=== PATIENT | male | born 1950 | race Caucasian/White ===

== ENCOUNTER 2017-07-08 07:42 | Inpatient (IN) ==
[2017-07-08] MEDS ORDERED: CEFUROXIME INJ 1,500 MG in SODIUM CHLORIDE 0.9% 100 ML IV ONE (09:37)
[2017-07-08 10:18] LABS: Basophils % 0.4 % (0.0-0.8); Eosinophils # 0.1 10*3/uL (0.0-0.87); Eosinophils % 0.9 % (0.00-10.9); Hematocrit 39.7 VOL% (42.0-52.0); Hemoglobin 14.2 GM/DL (14.0-18.0); Immature Granulocytes % 0.4 %; Immature Granulocytes Absolute 0.02 #; Lymphocytes # 1.9 10*3/uL (1.4-4.0); Lymphocytes % 35.9 % (21.2-54.2); Mean Corpuscular HGB Conc 35.8 GM/DL (32-36); Mean Corpuscular Hemoglobin 33 PG (27-34); Mean Corpuscular Volume 93.2 FL (87-102); Mean Platelet Volume 9.5 FL (9.6-12.0); Monocytes # 0.4 10*3/uL (0.11-0.8); Monocytes % 7.7 % (1.7-12.7); Neutrophils # 2.9 10*3/uL (1.4-7.4); Neutrophils % 54.7 % (38.7-73.9); Platelet Count 190 T/CUMM (130-400); Red Blood Count 4.26 MC/CUMM (3.8-5.5); Red Cell Distribution Width 12.6 % (9.3-17.3); White Blood Count 5.4 T/CUMM (4-12)
[2017-07-08 10:35] LABS: Albumin 3.7 G/DL (3.4-5.0); Bilirubin,Total 0.8 MG/DL (0.2-1.0); Calcium 8.9 MG/DL (8.5-10.1); Osmolality,Calculated 279.4 MOS/KG (273-304); Potassium 4.2 MMOL/L (3.5-5.1); Total Protein 6.9 G/DL (6.4-8.3)
[2017-07-08] MEDS ORDERED: ALBUTEROL/IPRATROPIUM 3 ML NEB RESP TX PRN (11:19)
[2017-07-08] MEDS ORDERED: GLUCAGON 1 MG VIAL IM PRN (11:20)
[2017-07-08] MEDS ORDERED: DEXTROSE 50% 25 GM/50 ML VIAL IV PRN (11:20)
[2017-07-08] MEDS ORDERED: ZALEPLON 5 MG CAPSULE PO PRN (11:21)
[2017-07-08 11:58] LABS: ABG HCO3 26.1 MMOL/L (20-26); ABG Oxygen Saturation 96.1 % (95-100); ABG PCO2 42.1 MM HG (35-48); ABG PH 7.412 (7.35-7.45); ABG PO2 77.6 MM HG (80-95); ABG TCO2 23.1 MMOL/L (23-27); Allen Test Positive; Pt O2 Delivery Device Room Air
[2017-07-08] MEDS: SODIUM CHLORIDE 0.9% 1,000 ML IV SCH (13:07)
[2017-07-08] MEDS: CHLORHEXIDINE 4% SOLN 118 ML BOTTLE TOP SCH ×2 (15:33→22:24)
[2017-07-08] MEDS: CARVEDILOL 3.125 MG TABLET PO SCH (22:23)
[2017-07-08] MEDS: CHLORHEXIDINE 0.12% ORAL RINSE 60 ML BOTTLE SWISH/SPIT SCH (22:26)
[2017-07-09] MEDS ORDERED: CEFUROXIME INJ 1,500 MG in SYRINGE 1 EACH IV ONE (04:00)
[2017-07-09] MEDS ORDERED: PAPAVERINE 60 MG/2 ML VIAL ONE (04:54)
[2017-07-09] MEDS ORDERED: VANCOMYCIN 1,000 MG VIAL ONE (04:54)
[2017-07-09] MEDS ORDERED: amLODIPine 10 MG TABLET PO SCH (05:30)
[2017-07-09] MEDS ORDERED: DIAZEPAM 5 MG TABLET PO ONE (05:30)
[2017-07-09] MEDS ORDERED: LOSARTAN 50 MG TABLET PO SCH (05:30)
[2017-07-09] MEDS ORDERED: FAMOTIDINE 20 MG TABLET PO ONE (05:30)
[2017-07-09] MEDS: CARVEDILOL 3.125 MG TABLET PO SCH ×2 (05:36→09:04)
[2017-07-09] MEDS ORDERED: TRANEXAMIC ACID 1,000 MG/10 ML VIAL IV ONE (05:43)
[2017-07-09] MEDS ORDERED: ALBUTEROL/IPRATROPIUM 3 ML NEB RESP TX ONE (06:00)
[2017-07-09] MEDS ORDERED: PHENYLEPHRINE DRIP 40 MG/250 ML PREMIX IV ONE (07:51)
[2017-07-09] MEDS ORDERED: NITROPRUSSIDE 50 MG/2 ML VIAL ONE (07:51)
[2017-07-09] MEDS ORDERED: CALCIUM CHLORIDE 1,000 MG/10 ML SYRINGE IV ONE (07:52)
[2017-07-09] MEDS ORDERED: POTASSIUM CHLORIDE RIDER 100 ML IV ONE (07:52)
[2017-07-09 07:54] LABS: ABG Base Excess -1.1 MMOL/L (-2.5-2.5); ABG HCO3 23.6 MMOL/L (20-26); ABG PCO2 38.5 MM HG (35-48); ABG PH 7.395 (7.35-7.45); ABG TCO2 20.6 MMOL/L (23-27); Glucose Heart Surgery 110 MG/DL (74-106); Hematocrit Heart Surgery 39.9 PERCENT (42-52); Ionized Calcium Arterial 1.19 MMOL/L (1.21-1.46); PCO2 Patient Temp Arterial 38.5 MMHG; PH Patient Temp Arterial 7.395; Patient Temperature 37 CELCIUS; Potassium Heart/CVR 4.1 MMOL/L (3.5-5.1); Sodium Heart/CVR 140 MMOL/L (135-145)
[2017-07-09 08:45] LABS: Apearance,Urine CLEAR (Clear); Bilirubin,Urine Negative (Negative); Blood, Urine Moderate mg/dL (Negative); Glucose,Urine (UA) Negative (Negative); Ketones,Urine Negative (Negative); Mucus,Urine Occasional /LPF (Occasional); Nitrite,Urine Negative (Negative); Protein,Urine Negative; RBC,Urine 1 /HPF (0-4); Squamous Epithelial Cell,Urine Occasional /HPF (0-10); Urine Color Yellow (Yellow); Urine Specific Gravity 1.008 (1.001-1.035); Urine Urobilinogen < 2.0 EU/DL (0.2-1.0); WBC,Urine 1 /HPF (0-6)
[2017-07-09] MEDS ORDERED: ATORVASTATIN 20 MG TABLET PO SCH (09:00)
[2017-07-09] MEDS ORDERED: ASPIRIN EC 81 MG TABLET PO SCH (09:00)
[2017-07-09] MEDS: CHLORHEXIDINE 4% SOLN 118 ML BOTTLE TOP SCH (09:05)
[2017-07-09] MEDS: CHLORHEXIDINE 0.12% ORAL RINSE 60 ML BOTTLE SWISH/SPIT SCH ×2 (09:05→20:18)
[2017-07-09 09:36] LABS: Hematocrit Heart Surgery 28.4 PERCENT (42-52); Hemoglobin Heart Surgery 9.2 G/DL (14.0-18.0); PCO2 Patient Temp Venous 34.8 MM HG; PH Patient Temp Venous 7.451; PO2 Patient Temp Venous 35.6 MM HG; Potassium Heart/CVR 4.7 MMOL/L (3.5-5.1); VBG Base Excess 0.7 MEQ/L (0-4); VBG HCO3 24.7 MEQ/L (24-28); VBG Oxygen Saturation 80.2 %; VBG PCO2 40.2 MMHG (41-51); VBG PH 7.407; VBG PO2 43.8 MMHG (17-40)
[2017-07-09 10:02] LABS: Hematocrit Heart Surgery 30.3 PERCENT (42-52); Hemoglobin Heart Surgery 9.8 G/DL (14.0-18.0); PCO2 Patient Temp Venous 32.9 MM HG; PH Patient Temp Venous 7.473; PO2 Patient Temp Venous 36.2 MM HG; Potassium Heart/CVR 4.7 MMOL/L (3.5-5.1); VBG Base Excess 0.9 MEQ/L (0-4); VBG PH 7.429; VBG PO2 44.5 MMHG (17-40)
[2017-07-09 10:40] LABS: Hematocrit Heart Surgery 29.3 PERCENT (42-52); Hemoglobin Heart Surgery 9.4 G/DL (14.0-18.0); PCO2 Patient Temp Venous 37.2 MM HG; PH Patient Temp Venous 7.415; PO2 Patient Temp Venous 40.9 MM HG; Potassium Heart/CVR 4.4 MMOL/L (3.5-5.1); VBG Base Excess -0.5 MEQ/L (0-4); VBG HCO3 23.7 MEQ/L (24-28); VBG PCO2 37.2 MMHG (41-51); VBG PH 7.415; VBG PO2 40.9 MMHG (17-40)
[2017-07-09 11:04] LABS: ABG Base Excess -2.5 MMOL/L (-2.5-2.5); ABG HCO3 22.3 MMOL/L (20-26); ABG Oxygen Saturation 99.4 % (95-100); ABG PCO2 39.2 MM HG (35-48); ABG PH 7.367 (7.35-7.45); ABG TCO2 20.4 MMOL/L (23-27); Glucose Heart Surgery 210 MG/DL (74-106); Hematocrit Heart Surgery 32.1 PERCENT (42-52); Hemoglobin Heart Surgery 10.4 G/DL (14.0-18.0); Ionized Calcium Arterial 1.18 MMOL/L (1.21-1.46); PCO2 Patient Temp Arterial 39.2 MMHG; PH Patient Temp Arterial 7.367; Patient Temperature 37 CELCIUS; Potassium Heart/CVR 3.8 MMOL/L (3.5-5.1); Sodium Heart/CVR 135 MMOL/L (135-145)
[2017-07-09] MEDS ORDERED: THROMBIN TOPICAL (RECOMBINANT) 5,000 UNIT VIAL TOP ONE (11:05)
[2017-07-09] MEDS ORDERED: ALBUMIN 25% 25 GM/100 ML VIAL IV ONE (11:13)
[2017-07-09] MEDS ORDERED: FUROSEMIDE 20 MG/2 ML VIAL ONE (11:14)
[2017-07-09] MEDS ORDERED: MANNITOL 12.5 GM/50 ML VIAL IV ONE ×2 (11:14→11:16)
[2017-07-09] MEDS ORDERED: HEPARIN 10,000 UNIT/10 ML VIAL ONE (11:14)
[2017-07-09 11:15] LABS: HIV Antigen/Antibody Result Nonreactive (Nonreactive); Hepatitis B Surface Ag Quant < 0.10 Index; Hepatitis B Surface Ag Result Negative (Negative); Hepatitis C Virus Ab Quant 0.08 Index; Hepatitis C Virus Ab Result Negative (Negative)
[2017-07-09] MEDS ORDERED: methylPREDNISolone SOD SUC 1,000 MG/8 ML VIAL ONE (11:16)
[2017-07-09] MEDS ORDERED: MAGNESIUM SULFATE 1 GM/2 ML VIAL ONE (11:16)
[2017-07-09] MEDS ORDERED: PROTAMINE SULFATE 250 MG/25 ML VIAL IV ONE (11:16)
[2017-07-09] MEDS ORDERED: PHENYLEPHRINE 10 MG/1 ML VIAL IV ONE ×2 (11:16→12:07)
[2017-07-09] MEDS ORDERED: SODIUM BICARBONATE 50 MEQ/50 ML SYRINGE IV ONE (11:16)
[2017-07-09] MEDS ORDERED: PROTAMINE SULFATE 50 MG/5 ML VIAL IV ONE (11:17)
[2017-07-09] MEDS ORDERED: CALCIUM CHLORIDE 1,000 MG/10 ML VIAL IV ONE (12:05)
[2017-07-09] MEDS ORDERED: SUFentanil 250 MCG/5 ML AMP ONE (12:06)
[2017-07-09] MEDS ORDERED: SEVOFLURANE 1 UNIT/15 MINUTE INH ONE (12:06)
[2017-07-09] MEDS ORDERED: HEPARIN/NACL 0.9% 2 UNITS/ML 500 ML IV ONE (12:06)
[2017-07-09] MEDS ORDERED: ETOMIDATE 40 MG/20 ML VIAL IV ONE (12:07)
[2017-07-09] MEDS ORDERED: LACTATED RINGERS 2,000 ML IV ONE (12:07)
[2017-07-09] MEDS ORDERED: VECURONIUM 10 MG VIAL IV ONE (12:07)
[2017-07-09] MEDS ORDERED: ePHEDrine 50 MG/ML AMP ONE (12:07)
[2017-07-09] MEDS ORDERED: MIDAZOLAM 10 MG/2 ML VIAL ONE (12:07)
[2017-07-09] MEDS ORDERED: SODIUM CHLORIDE 0.9% 2,000 ML IV ONE (12:07)
[2017-07-09] MEDS ORDERED: SODIUM CHLORIDE 0.9% 100 ML IV ONE (12:07)
[2017-07-09] MEDS ORDERED: SODIUM CHLORIDE 0.9% 250 ML IV ONE (12:07)
[2017-07-09] MEDS ORDERED: INSULIN REGULAR 100 UNIT/ML IV ONE (12:16)
[2017-07-09] MEDS ORDERED: VECURONIUM 10 MG VIAL IV PRN ×2 (12:16)
[2017-07-09] MEDS ORDERED: DEXTROSE 50% 25 GM/50 ML VIAL IV PRN ×2 (12:16)
[2017-07-09] MEDS ORDERED: MIDAZOLAM 10 MG/2 ML VIAL IV PRN (12:16)
[2017-07-09] MEDS ORDERED: ONDANSETRON 4 MG/2 ML VIAL IV PRN (12:16)
[2017-07-09] MEDS ORDERED: MORPHINE 2 MG/1 ML SYRINGE IV PRN (12:16)
[2017-07-09] MEDS ORDERED: MAGNESIUM SULF RIDER 4 GM in PREMIX 1 EACH IV PRN (12:16)
[2017-07-09] MEDS ORDERED: LACTATED RINGERS 250 ML IV PRN (12:16)
[2017-07-09] MEDS ORDERED: PHENYLEPHRINE DRIP 40 MG/250 ML PREMIX IV PRN (12:16)
[2017-07-09] MEDS ORDERED: ACETAMINOPHEN 650 MG SUPP RECTAL PRN (12:16)
[2017-07-09] MEDS ORDERED: MIDAZOLAM 2 MG/2 ML VIAL IV PRN (12:16)
[2017-07-09] MEDS ORDERED: MAGNESIUM SULF RIDER 2 GM in PREMIX 1 EACH IV PRN (12:16)
[2017-07-09] MEDS ORDERED: POTASSIUM CHLORIDE RIDER 10 MEQ in PREMIX 1 EACH IV PRN (12:16)
[2017-07-09] MEDS ORDERED: NITROPRUSSIDE 100 MG in DEXTROSE 5% 250 ML IV PRN (12:16)
[2017-07-09] MEDS ORDERED: CALCIUM CHLORIDE 1,000 MG/10 ML SYRINGE IV PRN (12:16)
[2017-07-09] MEDS ORDERED: SODIUM CHLORIDE 0.45% 1,000 ML IV SCH ×2 (12:16)
[2017-07-09] MEDS ORDERED: INSULIN REGULAR DRIP 100 ML IV SCH (12:16)
[2017-07-09] MEDS ORDERED: MORPHINE 10 MG/1 ML VIAL IV PRN (12:16)
[2017-07-09 12:19] LABS: ABG Base Excess -2.4 MMOL/L (-2.5-2.5); ABG HCO3 22.4 MMOL/L (20-26); ABG Oxygen Saturation 98.6 % (95-100); ABG PCO2 50.4 MM HG (35-48); ABG PH 7.296 (7.35-7.45); ABG TCO2 22.3 MMOL/L (23-27); Glucose Heart Surgery 180 MG/DL (74-106); Hematocrit Heart Surgery 34.8 PERCENT (42-52); Hemoglobin Heart Surgery 11.3 G/DL (14.0-18.0); Potassium Heart/CVR 3.6 MMOL/L (3.5-5.1)
[2017-07-09 12:25] LABS: Basophils % 0.2 % (0.0-0.8); Eosinophils # 0.1 10*3/uL (0.0-0.87); Eosinophils % 0.6 % (0.00-10.9); Hematocrit 31.1 VOL% (42.0-52.0); Immature Granulocytes % 0.8 %; Lymphocytes # 1.4 10*3/uL (1.4-4.0); Lymphocytes % 11.3 % (21.2-54.2); Mean Corpuscular Hemoglobin 34 PG (27-34); Mean Corpuscular Volume 94.2 FL (87-102); Mean Platelet Volume 9.7 FL (9.6-12.0); Monocytes # 0.6 10*3/uL (0.11-0.8); Monocytes % 4.6 % (1.7-12.7); Neutrophils # 10.5 10*3/uL (1.4-7.4); Neutrophils % 82.5 % (38.7-73.9); Red Cell Distribution Width 12.6 % (9.3-17.3)
[2017-07-09 12:26] LABS: Hemoglobin 11.2 GM/DL (14.0-18.0); Platelet Count 188 T/CUMM (130-400); White Blood Count 12.7 T/CUMM (4-12)
[2017-07-09 12:28] LABS: INR 1.1; PT Patient Result 11.5 SECS; Partial Thromboplastin Time 28.8 SECS (0-40)
[2017-07-09 12:45] LABS: Albumin 3.1 G/DL (3.4-5.0); Bilirubin,Total 1.3 MG/DL (0.2-1.0); Calcium 7.6 MG/DL (8.5-10.1); Potassium 3.7 MMOL/L (3.5-5.1); Total Protein 4.9 G/DL (6.4-8.3)
[2017-07-09 12:46] LABS: CKMB % 5.7 %
[2017-07-09 12:47] LABS: Troponin I Only 1.75 NG/ML (0.00-0.045)
[2017-07-09] MEDS: POTASSIUM CHLORIDE RIDER 20 MEQ in PREMIX 1 EACH IV PRN ×4 (12:52→16:28)
[2017-07-09] MEDS: KETOROLAC 30 MG/1 ML VIAL IV SCH ×2 (13:32→18:35)
[2017-07-09] MEDS: SODIUM CHLORIDE 0.9% 1,000 ML IV SCH (13:42)
[2017-07-09] MEDS: ALBUMIN 5% 12.5 GM in PREMIX 1 EACH IV PRN ×3 (13:57→18:45)
[2017-07-09 14:11] LABS: ABG Base Excess -1.4 MMOL/L (-2.5-2.5); ABG HCO3 23.2 MMOL/L (20-26); ABG Oxygen Saturation 98.2 % (95-100); ABG PCO2 42.8 MM HG (35-48); ABG PH 7.358 (7.35-7.45); ABG TCO2 21.6 MMOL/L (23-27); Glucose Heart Surgery 125 MG/DL (74-106); Hematocrit Heart Surgery 35.5 PERCENT (42-52); Hemoglobin Heart Surgery 11.5 G/DL (14.0-18.0)
[2017-07-09 16:14] LABS: ABG Base Excess -1.1 MMOL/L (-2.5-2.5); ABG HCO3 23.5 MMOL/L (20-26); ABG Oxygen Saturation 97.4 % (95-100); ABG PCO2 41.2 MM HG (35-48); ABG PH 7.374 (7.35-7.45); ABG PO2 91.9 MM HG (80-95); ABG TCO2 21.5 MMOL/L (23-27); Glucose Heart Surgery 106 MG/DL (74-106); Hematocrit Heart Surgery 35.4 PERCENT (42-52); Hemoglobin Heart Surgery 11.5 G/DL (14.0-18.0); Potassium Heart/CVR 3.9 MMOL/L (3.5-5.1)
[2017-07-09 19:00] LABS: ABG Base Excess -1.7 MMOL/L (-2.5-2.5); ABG Oxygen Saturation 95.1 % (95-100); ABG PH 7.389 (7.35-7.45); ABG PO2 81.2 MM HG (80-95); ABG TCO2 24.2 MMOL/L (23-27); Glucose Heart Surgery 127 MG/DL (74-106); Hemoglobin Heart Surgery 10.9 G/DL (14.0-18.0); Potassium Heart/CVR 4.3 MMOL/L (3.5-5.1)
[2017-07-09] MEDS: INSULIN REGULAR 100 UNIT/ML SUBCUT SCH (19:31)
[2017-07-09] MEDS: CEFUROXIME INJ 1,500 MG in SYRINGE 1 EACH IV SCH (20:18)
[2017-07-09] MEDS: METOPROLOL TARTRATE 25 MG TABLET PO SCH (20:18)
[2017-07-09 21:01] LABS: ABG Base Excess -3.5 MMOL/L (-2.5-2.5); ABG HCO3 21.5 MMOL/L (20-26); ABG Oxygen Saturation 97.9 % (95-100); ABG PCO2 44.4 MM HG (35-48); ABG PH 7.317 (7.35-7.45); ABG TCO2 20.6 MMOL/L (23-27); Glucose Heart Surgery 185 MG/DL (74-106); Hematocrit Heart Surgery 33.4 PERCENT (42-52); Hemoglobin Heart Surgery 10.8 G/DL (14.0-18.0); Potassium Heart/CVR 4.3 MMOL/L (3.5-5.1)
[2017-07-09 21:53] LABS: ABG HCO3 21.1 MMOL/L (20-26); ABG Oxygen Saturation 96.7 % (95-100); ABG PCO2 48.9 MM HG (35-48); ABG PH 7.281 (7.35-7.45); ABG PO2 93.9 MM HG (80-95); Glucose Heart Surgery 190 MG/DL (74-106); Hematocrit Heart Surgery 33.2 PERCENT (42-52); Hemoglobin Heart Surgery 10.7 G/DL (14.0-18.0); Potassium Heart/CVR 4.3 MMOL/L (3.5-5.1)
[2017-07-09] MEDS: INSULIN REGULAR 100 UNIT/ML IV PRN (22:04)
[2017-07-09 22:06] LABS: CKMB % 7.6 %
[2017-07-09 22:36] LABS: Troponin I Only 5.51 NG/ML (0.00-0.045)
[2017-07-09 23:51] LABS: ABG Base Excess -2.9 MMOL/L (-2.5-2.5); ABG HCO3 21.9 MMOL/L (20-26); ABG Oxygen Saturation 94.6 % (95-100); ABG PCO2 50.1 MM HG (35-48); ABG PH 7.289 (7.35-7.45); ABG PO2 77.8 MM HG (80-95); ABG TCO2 22.1 MMOL/L (23-27); Glucose Heart Surgery 162 MG/DL (74-106); Hematocrit Heart Surgery 31.5 PERCENT (42-52); Hemoglobin Heart Surgery 10.2 G/DL (14.0-18.0); Potassium Heart/CVR 4.3 MMOL/L (3.5-5.1)
[2017-07-10] MEDS ORDERED: FUROSEMIDE 40 MG/4 ML VIAL IV ONE (00:01)
[2017-07-10] MEDS: INSULIN REGULAR 100 UNIT/ML SUBCUT SCH ×7 (00:08→22:04)
[2017-07-10] MEDS: ALBUMIN 5% 12.5 GM in PREMIX 1 EACH IV PRN (00:09)
[2017-07-10] MEDS: KETOROLAC 30 MG/1 ML VIAL IV SCH ×5 (00:16→22:03)
[2017-07-10 02:10] LABS: ABG Base Excess -2.1 MMOL/L (-2.5-2.5); ABG HCO3 22.7 MMOL/L (20-26); ABG Oxygen Saturation 96.8 % (95-100); ABG PCO2 47.3 MM HG (35-48); ABG PH 7.319 (7.35-7.45); ABG PO2 87.2 MM HG (80-95); ABG TCO2 22.3 MMOL/L (23-27); Glucose Heart Surgery 143 MG/DL (74-106); Hematocrit Heart Surgery 31.3 PERCENT (42-52); Hemoglobin Heart Surgery 10.1 G/DL (14.0-18.0); Potassium Heart/CVR 4.2 MMOL/L (3.5-5.1)
[2017-07-10] MEDS: INSULIN REGULAR 100 UNIT/ML IV PRN (02:16)
[2017-07-10 04:03] LABS: ABG Base Excess -0.5 MMOL/L (-2.5-2.5); ABG Oxygen Saturation 96.2 % (95-100); ABG PCO2 46.3 MM HG (35-48); ABG PH 7.348 (7.35-7.45); ABG PO2 79.9 MM HG (80-95); ABG TCO2 23.3 MMOL/L (23-27); Glucose Heart Surgery 131 MG/DL (74-106)
[2017-07-10 04:04] LABS: Basophils % 0.1 % (0.0-0.8); Hematocrit 27.4 VOL% (42.0-52.0); Hemoglobin 9.7 GM/DL (14.0-18.0); Immature Granulocytes % 0.8 %; Lymphocytes # 0.6 10*3/uL (1.4-4.0); Lymphocytes % 4.8 % (21.2-54.2); Mean Corpuscular HGB Conc 35.4 GM/DL (32-36); Mean Corpuscular Hemoglobin 33 PG (27-34); Mean Corpuscular Volume 94.5 FL (87-102); Monocytes # 0.7 10*3/uL (0.11-0.8); Monocytes % 5.2 % (1.7-12.7); Neutrophils # 11.2 10*3/uL (1.4-7.4); Neutrophils % 89.1 % (38.7-73.9); Platelet Count 145 T/CUMM (130-400); White Blood Count 12.6 T/CUMM (4-12)
[2017-07-10] MEDS: POTASSIUM CHLORIDE RIDER 20 MEQ in PREMIX 1 EACH IV PRN (04:12)
[2017-07-10 04:22] LABS: Albumin 3.8 G/DL (3.4-5.0); Bilirubin,Direct 0.2 MG/DL (0.0-0.20); Bilirubin,Total 0.7 MG/DL (0.2-1.0); Potassium 4.1 MMOL/L (3.5-5.1); Total Protein 6.3 G/DL (6.4-8.3)
[2017-07-10 04:30] LABS: Band Neutrophils 3 % (0-10); Lymphocytes 10 % (20-55); Macrocytosis 1+; Platelet Estimate Normal; Segmented Neutrophils 83 % (50-85); Total Cells Counted 100
[2017-07-10 04:49] LABS: Troponin I Only 7.24 NG/ML (0.00-0.045)
[2017-07-10] MEDS: CEFUROXIME INJ 1,500 MG in SYRINGE 1 EACH IV SCH (07:53)
[2017-07-10] MEDS: METOPROLOL TARTRATE 25 MG TABLET PO SCH ×2 (08:00→22:03)
[2017-07-10] MEDS: CHLORHEXIDINE 0.12% ORAL RINSE 60 ML BOTTLE SWISH/SPIT SCH ×2 (08:00→22:04)
[2017-07-10] MEDS ORDERED: MAGNESIUM SULF RIDER 2 GM in PREMIX 1 EACH IV PRN (09:23)
[2017-07-10] MEDS ORDERED: ALUMINUM/MAGNES/SIMETH MAX STR 30 ML UDCUP PO PRN (09:23)
[2017-07-10] MEDS ORDERED: DEXTROSE 50% 25 GM/50 ML VIAL IV PRN (09:23)
[2017-07-10] MEDS ORDERED: ACETAMINOPHEN 325 MG TABLET PO PRN (09:23)
[2017-07-10] MEDS ORDERED: POTASSIUM CHLORIDE 20 MEQ TABLET PO PRN (09:23)
[2017-07-10] MEDS ORDERED: MAGNESIUM SULF RIDER 4 GM in PREMIX 1 EACH IV PRN (09:23)
[2017-07-10] MEDS ORDERED: MAGNESIUM HYDROXIDE SUSP 30 ML UDCUP PO PRN (09:23)
[2017-07-10] MEDS ORDERED: GLUCAGON 1 MG VIAL IM PRN (09:23)
[2017-07-10] MEDS ORDERED: CYANOCOBALAMIN 1000 MCG/1 ML VIAL IM SCH (09:30)
[2017-07-10] MEDS ORDERED: SODIUM CHLOR 0.45% KCL 20 MEQ 20 MEQ/1,000 ML BAG IV SCH (09:30)
[2017-07-10] MEDS: FERROUS SULFATE 325 MG TABLET PO SCH (09:50)
[2017-07-10] MEDS: LOSARTAN 50 MG TABLET PO SCH (09:50)
[2017-07-10] MEDS: amLODIPine 10 MG TABLET PO SCH (09:50)
[2017-07-10] MEDS: DOCUSATE SODIUM 100 MG CAPSULE PO SCH (09:50)
[2017-07-10] MEDS: PANTOPRAZOLE 40 MG TABLET PO SCH (09:50)
[2017-07-10] MEDS: ASPIRIN EC 325 MG TABLET PO SCH (09:50)
[2017-07-10] MEDS: ALBUTEROL/IPRATROPIUM 3 ML NEB RESP TX SCH ×4 (10:25→19:29)
[2017-07-10] MEDS: ONDANSETRON 4 MG/2 ML VIAL IV PRN (12:41)
[2017-07-10] MEDS: oxyCODONE/ACETAMINOPHEN 5-325 MG TABLET PO PRN ×2 (18:43→20:19)
[2017-07-10] MEDS ORDERED: CEFUROXIME INJ 1,500 MG in SYRINGE 1 EACH IV ONE (20:00)
[2017-07-10] MEDS: ZALEPLON 5 MG CAPSULE PO PRN (22:03)
[2017-07-10] MEDS: ATORVASTATIN 20 MG TABLET PO SCH (22:04)
[2017-07-11] MEDS: INSULIN REGULAR 100 UNIT/ML SUBCUT SCH ×6 (01:50→22:57)
[2017-07-11] MEDS: oxyCODONE/ACETAMINOPHEN 5-325 MG TABLET PO PRN ×4 (03:12→23:44)
[2017-07-11] MEDS: KETOROLAC 30 MG/1 ML VIAL IV SCH ×4 (03:12→20:59)
[2017-07-11] MEDS: ONDANSETRON 4 MG/2 ML VIAL IV PRN (04:24)
[2017-07-11 04:59] LABS: Basophils % 0.1 % (0.0-0.8); Hematocrit 26.5 VOL% (42.0-52.0); Immature Granulocytes % 1.8 %; Immature Granulocytes Absolute 0.27 #; Lymphocytes # 1.5 10*3/uL (1.4-4.0); Lymphocytes % 9.9 % (21.2-54.2); Mean Corpuscular Hemoglobin 33 PG (27-34); Mean Corpuscular Volume 97.8 FL (87-102); Mean Platelet Volume 10.2 FL (9.6-12.0); Monocytes # 1.1 10*3/uL (0.11-0.8); Monocytes % 7.6 % (1.7-12.7); Neutrophils # 11.9 10*3/uL (1.4-7.4); Neutrophils % 80.6 % (38.7-73.9); Platelet Count 154 T/CUMM (130-400); Red Blood Count 2.71 MC/CUMM (3.8-5.5); Red Cell Distribution Width 13.5 % (9.3-17.3); White Blood Count 14.7 T/CUMM (4-12)
[2017-07-11 05:15] LABS: Albumin 3.7 G/DL (3.4-5.0); Bilirubin,Direct 0.27 MG/DL (0.0-0.20); Bilirubin,Indirect 0.4 MG/DL (0.0-1.0); Bilirubin,Total 0.7 MG/DL (0.2-1.0); CKMB % 2.5 %; Calcium 8.4 MG/DL (8.5-10.1); Osmolality,Calculated 287.4 MOS/KG (273-304); Potassium 4.7 MMOL/L (3.5-5.1)
[2017-07-11 05:16] LABS: Troponin I Only 7.47 NG/ML (0.00-0.045)
[2017-07-11] MEDS ORDERED: FUROSEMIDE 40 MG/4 ML VIAL IV ONE (06:00)
[2017-07-11] MEDS: ALBUTEROL/IPRATROPIUM 3 ML NEB RESP TX SCH ×4 (07:25→22:51)
[2017-07-11] MEDS: LOSARTAN 50 MG TABLET PO SCH (08:44)
[2017-07-11] MEDS: amLODIPine 10 MG TABLET PO SCH (08:44)
[2017-07-11] MEDS: ASPIRIN EC 325 MG TABLET PO SCH (08:45)
[2017-07-11] MEDS: CHLORHEXIDINE 0.12% ORAL RINSE 60 ML BOTTLE SWISH/SPIT SCH ×2 (08:45→21:02)
[2017-07-11] MEDS: PANTOPRAZOLE 40 MG TABLET PO SCH (08:45)
[2017-07-11] MEDS: DOCUSATE SODIUM 100 MG CAPSULE PO SCH (08:45)
[2017-07-11] MEDS: METOPROLOL TARTRATE 25 MG TABLET PO SCH ×2 (08:45→20:58)
[2017-07-11] MEDS: FERROUS SULFATE 325 MG TABLET PO SCH (08:45)
[2017-07-11] MEDS: LACTULOSE 20 GM/30 ML UDCUP PO PRN ×2 (12:39→18:01)
[2017-07-11] MEDS: ATORVASTATIN 20 MG TABLET PO SCH (20:58)
[2017-07-11] MEDS: SODIUM PHOSPHATE ENEMA 133 ML BOTTLE RECTAL PRN (21:02)
[2017-07-11] MEDS: ZALEPLON 5 MG CAPSULE PO PRN (23:44)
[2017-07-12] MEDS: INSULIN REGULAR 100 UNIT/ML SUBCUT SCH ×6 (02:18→22:18)
[2017-07-12] MEDS: KETOROLAC 30 MG/1 ML VIAL IV SCH ×4 (03:24→22:16)
[2017-07-12] MEDS ORDERED: FUROSEMIDE 40 MG/4 ML VIAL IV ONE (03:42)
[2017-07-12] MEDS ORDERED: ALBUTEROL/IPRATROPIUM 3 ML NEB RESP TX PRN (03:44)
[2017-07-12] MEDS: ALBUTEROL/IPRATROPIUM 3 ML NEB RESP TX SCH (07:06)
[2017-07-12 07:13] LABS: Basophils % 0.1 % (0.0-0.8); Eosinophils % 0.1 % (0.00-10.9); Hematocrit 27.9 VOL% (42.0-52.0); Hemoglobin 9.5 GM/DL (14.0-18.0); Immature Granulocytes Absolute 0.24 #; Lymphocytes # 1.1 10*3/uL (1.4-4.0); Mean Corpuscular HGB Conc 34.1 GM/DL (32-36); Mean Corpuscular Hemoglobin 33 PG (27-34); Mean Corpuscular Volume 97.2 FL (87-102); Mean Platelet Volume 10.5 FL (9.6-12.0); Monocytes # 0.9 10*3/uL (0.11-0.8); Monocytes % 7.3 % (1.7-12.7); Neutrophils # 9.9 10*3/uL (1.4-7.4); Neutrophils % 81.5 % (38.7-73.9); Platelet Count 164 T/CUMM (130-400); Red Blood Count 2.87 MC/CUMM (3.8-5.5); Red Cell Distribution Width 13.2 % (9.3-17.3); White Blood Count 12.1 T/CUMM (4-12)
[2017-07-12 07:44] LABS: Calcium 8.4 MG/DL (8.5-10.1); Osmolality,Calculated 287.4 MOS/KG (273-304)
[2017-07-12 07:49] LABS: Bilirubin,Direct 0.35 MG/DL (0.0-0.20); Bilirubin,Indirect 0.8 MG/DL (0.0-1.0); Bilirubin,Total 1.1 MG/DL (0.2-1.0); CKMB % 1.1 %; Calcium 8.4 MG/DL (8.5-10.1); Osmolality,Calculated 288.3 MOS/KG (273-304); Total Protein 6.4 G/DL (6.4-8.3)
[2017-07-12 07:58] LABS: Troponin I Only 3.17 NG/ML (0.00-0.045)
[2017-07-12] MEDS: METOPROLOL TARTRATE 25 MG TABLET PO SCH ×2 (09:01→22:17)
[2017-07-12] MEDS: ASPIRIN EC 325 MG TABLET PO SCH (09:01)
[2017-07-12] MEDS: CHLORHEXIDINE 0.12% ORAL RINSE 60 ML BOTTLE SWISH/SPIT SCH ×2 (09:01→22:18)
[2017-07-12] MEDS: LOSARTAN 25 MG TABLET PO SCH (09:01)
[2017-07-12] MEDS: FERROUS SULFATE 325 MG TABLET PO SCH (09:01)
[2017-07-12] MEDS: DOCUSATE SODIUM 100 MG CAPSULE PO SCH (09:01)
[2017-07-12] MEDS: PANTOPRAZOLE 40 MG TABLET PO SCH (09:03)
[2017-07-12] MEDS: SODIUM PHOSPHATE ENEMA 133 ML BOTTLE RECTAL PRN (09:05)
[2017-07-12] MEDS: oxyCODONE/ACETAMINOPHEN 5-325 MG TABLET PO PRN ×2 (12:37→22:17)
[2017-07-12] MEDS: ATORVASTATIN 20 MG TABLET PO SCH (22:17)
[2017-07-12] MEDS: ZALEPLON 5 MG CAPSULE PO PRN (22:17)
[2017-07-13] MEDS: KETOROLAC 30 MG/1 ML VIAL IV SCH (04:14)
[2017-07-13] MEDS: INSULIN REGULAR 100 UNIT/ML SUBCUT SCH ×4 (07:46→20:25)
[2017-07-13] MEDS: DOCUSATE SODIUM 100 MG CAPSULE PO SCH (08:29)
[2017-07-13] MEDS: FERROUS SULFATE 325 MG TABLET PO SCH (08:29)
[2017-07-13] MEDS: LOSARTAN 25 MG TABLET PO SCH (08:29)
[2017-07-13] MEDS: PANTOPRAZOLE 40 MG TABLET PO SCH (08:29)
[2017-07-13] MEDS: CHLORHEXIDINE 0.12% ORAL RINSE 60 ML BOTTLE SWISH/SPIT SCH ×2 (08:29→20:58)
[2017-07-13] MEDS: METOPROLOL TARTRATE 25 MG TABLET PO SCH ×2 (08:29→20:58)
[2017-07-13] MEDS: ASPIRIN EC 325 MG TABLET PO SCH (08:29)
[2017-07-13] MEDS ORDERED: FUROSEMIDE 40 MG/4 ML VIAL IV ONE (08:44)
[2017-07-13] MEDS: ZALEPLON 5 MG CAPSULE PO PRN (20:56)
[2017-07-13] MEDS: oxyCODONE/ACETAMINOPHEN 5-325 MG TABLET PO PRN (20:57)
[2017-07-13] MEDS: ATORVASTATIN 20 MG TABLET PO SCH (20:57)
[2017-07-14 04:27] LABS: Basophils % 0.1 % (0.0-0.8); Eosinophils # 0.1 10*3/uL (0.0-0.87); Eosinophils % 1.5 % (0.00-10.9); Hematocrit 26.8 VOL% (42.0-52.0); Hemoglobin 9.7 GM/DL (14.0-18.0); Immature Granulocytes % 0.8 %; Immature Granulocytes Absolute 0.06 #; Lymphocytes # 1.7 10*3/uL (1.4-4.0); Lymphocytes % 23.1 % (21.2-54.2); Mean Corpuscular HGB Conc 36.2 GM/DL (32-36); Mean Corpuscular Hemoglobin 34 PG (27-34); Mean Corpuscular Volume 93.7 FL (87-102); Mean Platelet Volume 10.2 FL (9.6-12.0); Monocytes # 0.8 10*3/uL (0.11-0.8); Monocytes % 10.3 % (1.7-12.7); Neutrophils # 4.8 10*3/uL (1.4-7.4); Neutrophils % 64.2 % (38.7-73.9); Platelet Count 177 T/CUMM (130-400); Red Blood Count 2.86 MC/CUMM (3.8-5.5); Red Cell Distribution Width 12.5 % (9.3-17.3); White Blood Count 7.5 T/CUMM (4-12)
[2017-07-14 05:04] LABS: Alanine Aminotransferase 46 U/L (16-61); Albumin 3.5 G/DL (3.4-5.0); Alkaline Phosphatase 63 U/L (45-117); Aspartate Amino Transferase 27 U/L (0-37); Bilirubin,Indirect 0.8 MG/DL (0.0-1.0); Blood Urea Nitrogen 28 MG/DL (7-18); Calcium 8.6 MG/DL (8.5-10.1); Glucose 91 MG/DL (74-106); Osmolality,Calculated 282.5 MOS/KG (273-304); Potassium 3.8 MMOL/L (3.5-5.1); Sodium 139 MMOL/L (136-145)
[2017-07-14] MEDS: INSULIN REGULAR 100 UNIT/ML SUBCUT SCH ×2 (09:50→14:48)
[2017-07-14] MEDS: DOCUSATE SODIUM 100 MG CAPSULE PO SCH (09:52)
[2017-07-14] MEDS: PANTOPRAZOLE 40 MG TABLET PO SCH (09:52)
[2017-07-14] MEDS: ASPIRIN EC 325 MG TABLET PO SCH (09:53)
[2017-07-14] MEDS: FERROUS SULFATE 325 MG TABLET PO SCH (09:53)
[2017-07-14] MEDS: LOSARTAN 25 MG TABLET PO SCH (09:53)
[2017-07-14] MEDS: CHLORHEXIDINE 0.12% ORAL RINSE 60 ML BOTTLE SWISH/SPIT SCH (09:53)
[2017-07-14] MEDS: METOPROLOL TARTRATE 25 MG TABLET PO SCH (09:53)
[2017-07-14 11:57] VITALS: BP 101/66
== END 2017-07-14 14:55 | disposition home health service (06) | DRG 236 ==
LOC: N.4E 08:51 → N.CVR 07-09 11:50 → N.TELES 07-10 13:51

== ENCOUNTER 2018-11-03 05:35 | Observation (INO) ==
[2018-11-03 05:52] LABS: Basophils % 0.2 % (0.0-0.8); Eosinophils # 0.1 10*3/uL (0.0-0.87); Hematocrit 42.3 VOL% (42.0-52.0); Hemoglobin 14.6 GM/DL (14.0-18.0); Immature Granulocytes % 0.5 %; Immature Granulocytes Absolute 0.05 #; Lymphocytes # 1.3 10*3/uL (1.4-4.0); Lymphocytes % 14.1 % (21.2-54.2); Mean Corpuscular HGB Conc 34.5 GM/DL (32-36); Mean Corpuscular Volume 94.6 FL (87-102); Mean Platelet Volume 9.3 FL (9.6-12.0); Monocytes % 6.7 % (1.7-12.7); Neutrophils % 77.5 % (38.7-73.9); Platelet Count 197 T/CUMM (130-400); Red Blood Count 4.47 MC/CUMM (3.8-5.5); Red Cell Distribution Width 12.9 % (9.3-17.3); White Blood Count 9.2 T/CUMM (4-12)
[2018-11-03] MEDS ORDERED: methylPREDNISolone SOD SUC 125 MG/2 ML VIAL IV STA (06:04)
[2018-11-03] MEDS ORDERED: ALBUTEROL 2.5 MG/3 ML NEB RESP TX STA (06:04)
[2018-11-03] MEDS ORDERED: MAGNESIUM SULF RIDER 2 GM in PREMIX 1 EACH IV STA (06:04)
[2018-11-03 06:28] LABS: Albumin 3.9 G/DL (3.4-5.0); Bilirubin,Total 0.8 MG/DL (0.2-1.0); Calcium 9.5 MG/DL (8.5-10.1); Osmolality,Calculated 286.1 MOS/KG (273-304); Total Protein 7.5 G/DL (6.4-8.3)
[2018-11-03] MEDS ORDERED: FUROSEMIDE 40 MG/4 ML VIAL IV STA (07:55)
[2018-11-03] MEDS ORDERED: ONDANSETRON 4 MG/2 ML VIAL IV PRN (10:10)
[2018-11-03] MEDS ORDERED: ACETAMINOPHEN 325 MG TABLET PO PRN (10:10)
[2018-11-03] MEDS ORDERED: NITROGLYCERIN SL 0.4 MG TABLET SL PRN (11:35)
[2018-11-03] MEDS ORDERED: CYANOCOBALAMIN 1000 MCG/1 ML VIAL IM SCH (12:00)
[2018-11-03] MEDS: NICOTINE 14 MG/24 HR PATCH TRANSDERM SCH (12:57)
[2018-11-03 17:04] LABS: Apearance,Urine CLEAR (Clear); Bilirubin,Urine Negative (Negative); Blood, Urine Negative (Negative); Glucose,Urine (UA) Negative (Negative); Ketones,Urine Negative (Negative); Nitrite,Urine Negative (Negative); Protein,Urine Negative; RBC,Urine 1 /HPF (0-4); Squamous Epithelial Cell,Urine Occasional /HPF (0-10); Urine Color Yellow (Yellow); Urine Specific Gravity 1.034 (1.001-1.035); Urine Urobilinogen < 2.0 EU/DL (0.2-1.0)
[2018-11-03] MEDS: LEVALBUTEROL 0.63 MG/3 ML NEB RESP TX PRN (20:07)
[2018-11-03] MEDS: FERROUS SULFATE 325 MG TABLET PO SCH (21:02)
[2018-11-03] MEDS: METOPROLOL TARTRATE 25 MG TABLET PO SCH (21:02)
[2018-11-03] MEDS: ASCORBIC ACID 500 MG TABLET PO SCH (21:02)
[2018-11-03] MEDS: PRAMIPEXOLE 0.25 MG TABLET PO SCH (21:02)
[2018-11-03] MEDS: THEOPHYLLINE ER 300 MG TABLET PO SCH (21:02)
[2018-11-04 04:26] LABS: Basophils % 0.1 % (0.0-0.8); Eosinophils % 0.2 % (0.00-10.9); Hematocrit 38.7 VOL% (42.0-52.0); Hemoglobin 13.6 GM/DL (14.0-18.0); Immature Granulocytes % 0.5 %; Immature Granulocytes Absolute 0.06 #; Lymphocytes # 1.4 10*3/uL (1.4-4.0); Lymphocytes % 11.2 % (21.2-54.2); Mean Corpuscular HGB Conc 35.1 GM/DL (32-36); Mean Corpuscular Volume 94.6 FL (87-102); Mean Platelet Volume 9.7 FL (9.6-12.0); Monocytes % 7.2 % (1.7-12.7); Neutrophils % 80.8 % (38.7-73.9); Platelet Count 204 T/CUMM (130-400); Red Blood Count 4.09 MC/CUMM (3.8-5.5); Red Cell Distribution Width 12.8 % (9.3-17.3); White Blood Count 12.6 T/CUMM (4-12)
[2018-11-04 05:07] LABS: Calcium 9.7 MG/DL (8.5-10.1); Osmolality,Calculated 285.4 MOS/KG (273-304); Thyroid Stimulating Hormone 0.426 uIU/ml (0.358-3.74)
[2018-11-04] MEDS ORDERED: PARoxetine 20 MG TABLET PO SCH (09:00)
[2018-11-04] MEDS ORDERED: FUROSEMIDE 40 MG/4 ML VIAL IV SCH (09:00)
[2018-11-04] MEDS: ATORVASTATIN 20 MG TABLET PO SCH (10:14)
[2018-11-04] MEDS: LOSARTAN 50 MG TABLET PO SCH (10:14)
[2018-11-04] MEDS: THEOPHYLLINE ER 300 MG TABLET PO SCH ×2 (10:14→21:45)
[2018-11-04] MEDS: predniSONE 20 MG TABLET PO SCH (10:14)
[2018-11-04] MEDS: METOPROLOL TARTRATE 25 MG TABLET PO SCH ×2 (10:14→21:45)
[2018-11-04] MEDS: ASPIRIN EC 81 MG TABLET PO SCH (10:15)
[2018-11-04] MEDS: SERTRALINE 100 MG TABLET PO SCH (10:15)
[2018-11-04] MEDS: PANTOPRAZOLE 40 MG TABLET PO SCH (10:15)
[2018-11-04] MEDS: CLOPIDOGREL 75 MG TABLET PO SCH (10:15)
[2018-11-04] MEDS: ASCORBIC ACID 500 MG TABLET PO SCH ×2 (10:15→21:44)
[2018-11-04] MEDS: NICOTINE 14 MG/24 HR PATCH TRANSDERM SCH (10:15)
[2018-11-04] MEDS: MONTELUKAST 10 MG TABLET PO SCH (13:08)
[2018-11-04] MEDS: FUROSEMIDE 40 MG/4 ML VIAL IV SCH (16:55)
[2018-11-04] MEDS: PRAMIPEXOLE 0.25 MG TABLET PO SCH (21:44)
[2018-11-04] MEDS: FERROUS SULFATE 325 MG TABLET PO SCH (21:45)
[2018-11-05 05:44] LABS: Basophils % 0.3 % (0.0-0.8); Eosinophils # 0.1 10*3/uL (0.0-0.87); Eosinophils % 0.6 % (0.00-10.9); Hematocrit 40.3 VOL% (42.0-52.0); Hemoglobin 13.9 GM/DL (14.0-18.0); Immature Granulocytes % 0.7 %; Immature Granulocytes Absolute 0.07 #; Mean Corpuscular HGB Conc 34.5 GM/DL (32-36); Mean Corpuscular Volume 95.5 FL (87-102); Mean Platelet Volume 9.5 FL (9.6-12.0); Neutrophils % 71.4 % (38.7-73.9); Platelet Count 207 T/CUMM (130-400); Red Blood Count 4.22 MC/CUMM (3.8-5.5); Red Cell Distribution Width 12.7 % (9.3-17.3); White Blood Count 10.7 T/CUMM (4-12)
[2018-11-05 06:19] LABS: Calcium 9.4 MG/DL (8.5-10.1); Osmolality,Calculated 281.5 MOS/KG (273-304)
[2018-11-05] MEDS: METOPROLOL TARTRATE 25 MG TABLET PO SCH (09:17)
[2018-11-05] MEDS: MONTELUKAST 10 MG TABLET PO SCH (09:17)
[2018-11-05] MEDS: THEOPHYLLINE ER 300 MG TABLET PO SCH (09:17)
[2018-11-05] MEDS: CLOPIDOGREL 75 MG TABLET PO SCH (09:17)
[2018-11-05] MEDS: predniSONE 20 MG TABLET PO SCH (09:18)
[2018-11-05] MEDS: ASCORBIC ACID 500 MG TABLET PO SCH (09:18)
[2018-11-05] MEDS: PANTOPRAZOLE 40 MG TABLET PO SCH (09:18)
[2018-11-05] MEDS: LOSARTAN 50 MG TABLET PO SCH (09:18)
[2018-11-05] MEDS: NICOTINE 14 MG/24 HR PATCH TRANSDERM SCH (09:18)
[2018-11-05] MEDS: ASPIRIN EC 81 MG TABLET PO SCH (09:18)
[2018-11-05] MEDS: ATORVASTATIN 20 MG TABLET PO SCH (09:18)
[2018-11-05] MEDS: SERTRALINE 100 MG TABLET PO SCH (09:18)
[2018-11-05] MEDS: FUROSEMIDE 40 MG/4 ML VIAL IV SCH ×2 (09:19→16:00)
[2018-11-05] MEDS: LEVALBUTEROL 0.63 MG/3 ML NEB RESP TX PRN (09:40)
[2018-11-05] MEDS ORDERED: POTASSIUM CHLORIDE 20 MEQ TABLET PO PRN (10:14)
[2018-11-05 11:29] VITALS: BP 115/75
== END 2018-11-05 17:09 | disposition home or self-care (01) ==
LOC: N.ED 05:35 → N.EDINP 05:35 → N.5E 10:33
PROVIDERS: ADMIT Internal Medicine; ATTEND Internal Medicine